=== PATIENT | female | born 1990 | race Caucasian/White ===

== ENCOUNTER 2017-04-12 14:01 | Inpatient (IN) | payer MEDICAID, OTHER ==
[~2017-04-12] VITALS: Ht 162.6 cm; Wt 87.9 kg
[2017-04-12 14:03] VITALS: BP 164/88; PULSE 74; RESP 16; TEMP 97.9; O2SAT 98
[2017-04-12 15:26] LABS: AUTOMATED NEUTROPHIL # 6.8 TH/MM3 (1.8-7.7); BASOPHIL # 0.1 TH/MM3 (0-0.2); BASOPHIL % 0.5 % (0.0-2.0); EOSINOPHIL # 0.5 TH/MM3 (0-0.4); EOSINOPHIL % 4.6 % (0.0-4.0); HEMATOCRIT 36.7 % (35.0-46.0); HEMO FLAGS DIFF FINAL; LYMPH % 21.1 % (9.0-44.0); LYMPHOCYTE # 2.1 TH/MM3 (1.0-4.8); MEAN CELL VOLUME 78.7 FL (80.0-100.0); MEAN CORPUSCULAR HEMOGLOBIN 25.8 PG (27.0-34.0); MEAN CORPUSCULAR HGB CONC 32.8 % (32.0-36.0); MONO % 5.5 % (0.0-8.0); NEUT % 68.3 % (16.0-70.0); PLATELET COUNT 265 TH/MM3 (150-450); RED BLOOD COUNT 4.67 MIL/MM3 (4.00-5.30); RED CELL DISTRIBUTION WIDTH 15.4 % (11.6-17.2)
[2017-04-12 15:44] LABS: ALT (GPT) 20 U/L (10-53); ANION GAP 7 MEQ/L (5-15); AST (GOT) 12 U/L (15-37); BLOOD UREA NITROGEN 11 MG/DL (7-18); CHLORIDE 106 MEQ/L (98-107); GLOMERULAR FILTRATION RATE 106 ML/MIN (>89); POTASSIUM 3.9 MEQ/L (3.5-5.1); SODIUM (NA) 139 MEQ/L (136-145)
[2017-04-12 15:46] LABS: ALKALINE PHOSPHATASE 116 U/L (45-117); TOTAL BILIRUBIN ADULT 0.3 MG/DL (0.2-1.0)
[2017-04-12 16:26] LABS: BLOOD, URINE NEG (NEG); CALCIUM OXALATE CRYSTALS,URINE FEW /hpf; GLUCOSE,URINE NEG (NEG); KETONE, URINE NEG (NEG); NITRITE,URINE NEG (NEG); PH, URINE 6.5 (5.0-8.5); SQUAMOUS EPITHELIAL CELL URINE 5 /hpf (0-5); URINE COLOR YELLOW (YELLW/STRAW)
[2017-04-12 16:28] LABS: COMMENT (UR) CULTURE INDICATED; CULTURE IF INDICATED CULTURE INDICATED
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
[2017-04-12 17:07] VITALS: BP 135/88; PULSE 56; RESP 17; O2SAT 99
[2017-04-12] MEDS ORDERED: MACR100C2 PO (18:52)
[2017-04-12] MEDS ORDERED: NITROFURANTOIN MONOHYD MACROCR 100 MG CAP PO ONE (19:00)
[2017-04-12 19:09] VITALS: BP 137/72; PULSE 80; RESP 18; O2SAT 99
[2017-04-12 22:15] VITALS: BP 138/97; PULSE 71; RESP 18; TEMP 98.7; O2SAT 97
[2017-04-12] MEDS ORDERED: diphenhydrAMINE HCL 50 MG/ML VIAL - HS PRN IM (23:00)
[2017-04-12] MEDS ORDERED: diphenhydrAMINE HCL 50 MG CAP - HS PRN PO (23:00)
[2017-04-12] MEDS ORDERED: ACETAMINOPHEN 325 MG TAB PO PRN (23:00)
[2017-04-12] MEDS ORDERED: ALUMINUM/MAGNESIUM/SIMETH 30 ML CUP PO PRN (23:00)
[2017-04-12] MEDS ORDERED: MAGNESIUM HYDROXIDE SUSP 30 ML CUP PO PRN (23:00)
[2017-04-13 06:07] VITALS: BP 105/64; PULSE 56; RESP 18; TEMP 97.7; O2SAT 96
[2017-04-13] MEDS: NICOTINE 21 MG/24 HR PATCH T-DERMAL SCH (09:00)
[2017-04-13] MEDS: REMOVE OLD NICOTINE PATCH T-DERMAL SCH (09:21)
[2017-04-13 09:41] LABS: ANION GAP 7 MEQ/L (5-15); BICARBONATE 25.7 MEQ/L (21.0-32.0); BLOOD UREA NITROGEN 10 MG/DL (7-18); CHLORIDE 106 MEQ/L (98-107); GLOMERULAR FILTRATION RATE 112 ML/MIN (>89); SODIUM (NA) 139 MEQ/L (136-145)
[2017-04-13 09:45] LABS: HDL CHOLESTEROL 81.8 MG/DL (40.0-60.0); LDL CHOLESTEROL 61 MG/DL (0-99)
[2017-04-13] MEDS ORDERED: PILL SPLITTER OTHER PRN (09:45)
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
[2017-04-13] MEDS: SERTRALINE HCL 50 MG TAB PO SCH (10:37)
[2017-04-13 11:01] LABS: HEMOGLOBIN A1a 1.5 %; HEMOGLOBIN Ao 85.2 %; HEMOGLOBIN F 1.2 %; HEMOGLOBIN LA1C 1.9 %; HEMOGLOBIN P3 3.4 %
--- NOTE | 2017-04-13 16:10 | PD.CONS ---
HPI Service [facility] Consult Requested By Dr. Hamilton Reason for Consult Medical management Primary Care Physician Unknown Diagnoses: History of Present Illness The patient is a 26-year-old female with past medical history of anxiety and SVT who is presenting to the hospital with anxiety. She says that over the past 2 months she has been experiencing panic attacks, up to 2 per day. She says her symptoms include shortness of breath, palpitations, dizziness and sweating. She says she moved 2 months ago but does not believe that is the stressor that caused her panic attacks to start. 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 She has been having thoughts about dying so she came to the hospital to seek voluntary help. She denies any out right suicidal plan. She says she has been on antidepressants once when she was 15. She said that she experiences palpitations with her panic attacks and gets very nervous that it might turn into another episode of SVT. Review of Systems Except as stated in HPI: all other systems reviewed are Neg Past Family Social History Allergies: Coded Allergies: No Known Allergies (Verified , 04/12/15) Past Medical History 2 episodes of SVT, one while Anxiety Past Surgical History 1 Active Ordered Medications Current Medications Medications (Trade) Dose Ordered Sig/Christine Route Start Time Stop Time Status Last Admin (Atarax) 50 mg Q6H PRN PO 04/12/17 23:00 (Benadryl) 50 mg HS PRN PO 04/12/17 23:00 (Benadryl Inj) 50 mg HS PRN IM 04/12/17 23:00 (Tylenol) 650 mg Q4H PRN PO 04/12/17 23:00 (Milk Of Magnesia Liq) 30 ml DAILY PRN PO 04/12/17 23:00 (Mag-Al Plus Susp Liq) 30 ml Q6H PRN PO 04/12/17 23:00 (Habitrol 21 Mg Patch.24 Hr) 1 patch DAILY T-DERMAL 04/13/17 09:00 Miscellaneous Information 1 HS T-DERMAL 04/13/17 21:00 (Zoloft) 25 mg DAILY PO 04/13/17 10:00 04/13/17 10:37 (Desyrel) 25 mg HS PRN PO 04/13/17 09:30 (Macrobid) 100 mg BID PO 04/13/17 21:00 (Pill Splitter) 1 ea UNSCH PRN OTHER 04/13/17 09:45 Family History Schizophrenia Social History The patient smokes when she drinks. She drinks heavily one to 2 days a week. She smokes marijuana daily. Physical Exam Vital Signs Vital Signs Date Time Temp Pulse Resp B/P (MAP) Pulse Ox O2 Delivery O2 Flow Rate FiO2 04/13/17 06:07 97.7 56 18 105/64 (78) 96 04/12/17 22:15 98.7 71 18 138/97 (111) 97 04/12/17 22:08 04/12/17 19:09 80 18 137/72 (93) 99 Room Air 04/12/17 17:07 56 17 135/88 (104) 99 Room Air Physical Exam GENERAL: This is a well-nourished, well-developed patient, in no apparent distress. SKIN: No rashes, ecchymoses or lesions. Cool and dry. HEAD: Atraumatic. Normocephalic. No temporal or scalp tenderness. EYES: Pupils equal round and reactive. Extraocular motions intact. No scleral icterus. No injection or drainage. ENT: Nose without bleeding, purulent drainage or septal hematoma. Throat without erythema, tonsillar hypertrophy or exudate. Uvula midline. Airway patent. NECK: Trachea midline. No JVD or lymphadenopathy. Supple, nontender, no meningeal signs. CARDIOVASCULAR: Regular rate and rhythm without murmurs, gallops, or rubs. RESPIRATORY: Clear to auscultation. Breath sounds equal bilaterally. No wheezes , rales, or rhonchi. GASTROINTESTINAL: Abdomen soft, non-tender, nondistended. No hepato-splenomegaly , or palpable masses. No guarding. MUSCULOSKELETAL: Extremities without clubbing, cyanosis, or edema. No joint tenderness, effusion, or edema noted. NEUROLOGICAL: Awake and alert. Cranial nerves II through XII intact. Motor and sensory grossly within normal limits. Five out of 5 muscle strength in all muscle groups. Normal speech. PSYCH: Mood and affect appropriate. Laboratory Laboratory Tests Test 04/13/17 08:07 Blood Urea Nitrogen 10 Creatinine 0.64 Random Glucose 80 Calcium Level 8.8 Sodium Level 139 Potassium Level 4.0 Chloride Level 106 Carbon Dioxide Level 25.7 Anion Gap 7 Estimat Glomerular Filtration Rate 112 Hemoglobin A1c 5.4 Triglycerides Level 98 Cholesterol Level 162 LDL Cholesterol 61 HDL Cholesterol 81.8 Cholesterol/HDL Ratio 1.98 Date/Time Source Procedure Growth Status 04/12/17 16:00 Urine Clean Catch Urine Culture - Preliminary NO GROWTH IN 24 HOURS. Resulted Result Diagram: 04/12/17 1442 04/13/17 0807 Assessment and Plan Assessment and Plan Anxiety/ Panic attacks Debilitating. Ongoing for the past 2 months. - Management per psychiatry. SVT The patient has had 2 episodes in her life, one while . Heart rate currently well controlled. - Outpatient follow-up as needed. UTI Possible UTI noted on urinalysis. Pulmonary culture is negative. - Continue to follow urine culture. PPx: [facility] will sign off on this stable patient Isael Madrid DO Apr 13, 2017 16:10
[2017-04-13 18:11] VITALS: BP 138/76; PULSE 70; RESP 16; TEMP 97.7; O2SAT 97
[2017-04-13] MEDS: NITROFURANTOIN MONOHYD MACROCR 100 MG CAP PO SCH (21:52)
[2017-04-13] MEDS: traZODone HCL 50 MG TAB PO PRN (21:58)
[2017-04-14 05:30] VITALS: BP 135/71; PULSE 80; RESP 17; TEMP 98.4; O2SAT 97
[2017-04-14] MEDS: hydrOXYzine HCL 50 MG TAB PO PRN (08:41)
[2017-04-14] MEDS: NITROFURANTOIN MONOHYD MACROCR 100 MG CAP PO SCH ×2 (08:41→20:54)
[2017-04-14] MEDS: NICOTINE 21 MG/24 HR PATCH T-DERMAL SCH (08:43)
[2017-04-14] MEDS: SERTRALINE HCL 50 MG TAB PO SCH (08:43)
--- NOTE | 2017-04-14 14:01 | HHI.PYPN ---
Subjective Remarks Pt seen and discussed with staff. She remains depressed and anxious. She is compliant with medications and denies side effects.She has been withdrawn and isolative to her room. Pt states that she is tolerating medication without side effects. No SI/HI Chief Complaint: increased depression anxiety unable to hold job Mental Status Examination Appearance: Appropriate Consciousness: Alert Orientation: x4 Motor Activity: Normal gait Speech: Unremarkable Language: Adequate Fund of Knowledge: Adequate Attention and Concentration: Other (fair) Memory: Unremarkable Mood: Other (depressed) Affect: Sad Thought Process & Associations: Intact Thought Content: Appropriate Hallucination Type: None Delusion Type: None Suicidal Ideation: No Suicidal Plan: No Suicidal Intention: No Homicidal Ideation: No Homicidal Plan: No Homicidal Intention: No Insight: Fair Judgment: Adequate Results Labs Date/Time Source Procedure Growth Status 04/12/17 16:00 Urine Clean Catch Urine Culture - Final 50-100,000 CFU/ML MIXED GRAM POSITIVE... Complete Vitals/IOs Vital Signs Date Time Temp Pulse Resp B/P (MAP) Pulse Ox O2 Delivery O2 Flow Rate FiO2 04/14/17 05:30 98.4 80 17 135/71 (92) 97 04/12/17 19:09 Room Air Assessment & Plan Problem List: (1) Depression, major, single episode, moderate ICD Codes: F32.1 - Major depressive disorder, single episode, moderate (2) Marijuana abuse ICD Codes: F12.10 - Cannabis abuse, uncomplicated Assessment & Plan Continue current tx plan. Estimated LOS: days Justification for Cont. Inpt. monitoring for safety Request HC Surrog/Guard Advoc?: Domenica Beebe MD Apr 14, 2017 14:01
[2017-04-14 16:46] VITALS: BP 134/87; PULSE 78; RESP 18; TEMP 98.4; O2SAT 98
[2017-04-14] MEDS: traZODone HCL 50 MG TAB PO PRN (20:54)
[2017-04-14] MEDS: REMOVE OLD NICOTINE PATCH T-DERMAL SCH (20:55)
[2017-04-15 06:30] VITALS: BP 107/60; PULSE 62; RESP 18; TEMP 97.5; O2SAT 98
[2017-04-15] MEDS: NITROFURANTOIN MONOHYD MACROCR 100 MG CAP PO SCH ×2 (08:38→21:04)
[2017-04-15] MEDS: SERTRALINE HCL 50 MG TAB PO SCH (08:38)
[2017-04-15] MEDS: hydrOXYzine HCL 50 MG TAB PO PRN (08:39)
[2017-04-15] MEDS: NICOTINE 21 MG/24 HR PATCH T-DERMAL SCH (08:52)
[2017-04-15] MEDS ORDERED: busPIRone HCL 5 MG TAB PO SCH (14:00)
--- NOTE | 2017-04-15 16:54 | HHI.PYPN ---
Subjective Remarks Patient's for follow-up, chart review. Patient is a 26-year-old woman , domiciled with boyfriend and 19 -month-old child, unemployed, with past psychiatric history of bipolar disorder, marijuana use disorder with no previous psychiatric hospitalizations no previous suicide attempt history of self-interest behavior via cutting (last being at 19 years old), who was admitted to the inpatient psychiatry unit on a voluntary basis for depression and anxiety. Patient states that she was having "panic attack feelings" and feeling overwhelmed with losing her job, reporting having some social anxiety and being scared while driving feeling very anxious. Patient reports that recently her sleep has been okay, no problems with appetite but didn't notice having decreased energy and concentrations along with feelings of guilt of being "a bad mom" referring to trying to maintain a job. Patient states her mood has been "anxiety", but feeling sad and depressed for the past couple of months along with feeling helpless and hopeless. Patient reports she's been having suicidal ideations last time being upon admission (3 days ago) and reports having had suicidal ideation for the past 2-3 weeks a daily basis. Patient states that she has not had any medical planning states that her reasons to live or for her daughter, family, and her own life. Patient denies any perceptual disturbances denies SI or HI or any delusions. Patient states that today she is feeling "better" and that her anxiety has been better. Collateral contacts: Ember Rivers (mother)[phone] Owen Jesus (boyfriend) Chief Complaint: increased depression anxiety unable to hold job Review of Systems Except as stated in HPI: all other systems reviewed are Neg Mental Status Examination Appearance: Appropriate Consciousness: Alert Orientation: x4 Motor Activity: Normal gait Speech: Unremarkable Language: Adequate Fund of Knowledge: Adequate Attention and Concentration: Other (fair) Memory: Unremarkable Mood: Other ("better") Affect: Sad Thought Process & Associations: Intact, Goal directed Thought Content: Appropriate Hallucination Type: None Delusion Type: None Suicidal Ideation: No Suicidal Plan: No Suicidal Intention: No Homicidal Ideation: No Homicidal Plan: No Homicidal Intention: No Insight: Fair Judgment: Adequate Results Labs Date/Time Source Procedure Growth Status 04/12/17 16:00 Urine Clean Catch Urine Culture - Final 50-100,000 CFU/ML MIXED GRAM POSITIVE... Complete Vitals/IOs Vital Signs Date Time Temp Pulse Resp B/P (MAP) Pulse Ox O2 Delivery O2 Flow Rate FiO2 04/15/17 06:30 97.5 62 18 107/60 (76) 98 04/12/17 19:09 Room Air Assessment & Plan Problem List: (1) Depression, major, single episode, moderate ICD Codes: F32.1 - Major depressive disorder, single episode, moderate (2) Marijuana abuse ICD Codes: F12.10 - Cannabis abuse, uncomplicated Assessment & Plan Patient continues to report having depressed mood and anxiety but no longer having suicidal ideations. Increase sertraline to 50 mg by mouth daily for depression, start buspirone 5 mg by mouth 3 times a day for anxiety. Encourage patient to put his spitting groups and activities and to be less isolative. Monitor for medication response and adverse drug reactions. Discharge planning in progress Justification for Cont. Inpt. At risk for further decompensation if at lower level of care Discharge Planning Was psychiatrically stable patient may return home with boyfriend. Request HC Surrog/Guard Advoc?: No Wade Vu MD Apr 15, 2017 16:53
[2017-04-15] MEDS: busPIRone HCL 5 MG TAB PO SCH (17:35)
[2017-04-15 18:00] VITALS: BP 141/91; PULSE 77; RESP 16; TEMP 98
[2017-04-15] MEDS: REMOVE OLD NICOTINE PATCH T-DERMAL SCH (21:00)
[2017-04-15] MEDS: traZODone HCL 50 MG TAB PO PRN (21:05)
[2017-04-16 05:52] VITALS: BP 129/65; PULSE 74; RESP 18; TEMP 97.7; O2SAT 96
[2017-04-16] MEDS: NICOTINE 21 MG/24 HR PATCH T-DERMAL SCH (09:00)
[2017-04-16] MEDS: busPIRone HCL 5 MG TAB PO SCH ×3 (10:00→18:15)
[2017-04-16] MEDS: SERTRALINE HCL 50 MG TAB PO SCH (10:00)
[2017-04-16] MEDS: NITROFURANTOIN MONOHYD MACROCR 100 MG CAP PO SCH ×2 (10:00→21:34)
--- NOTE | 2017-04-16 12:20 | HHI.PYPN ---
Subjective Remarks Patient seen for follow-up, chart reviewed. Patient found walking around units , cooperative interview. Patient states that she had gone to psychotherapy group which she enjoyed including our group. Patient states that her mood is "pretty good" denies any suicidal ideations last time being last Saturday and states that her anxiety has gotten better. Patient reports tolerating medications well no adverse drug reactions. Patient additionally visited by her boyfriend which she was happy to see. Chief Complaint: increased depression anxiety unable to hold job Review of Systems Except as stated in HPI: all other systems reviewed are Neg Mental Status Examination Appearance: Appropriate Consciousness: Alert Orientation: x4 Motor Activity: Normal gait Speech: Unremarkable Language: Adequate Fund of Knowledge: Adequate Attention and Concentration: Other (fair) Memory: Unremarkable Mood: Appropriate, Other ("pretty good") Affect: Appropriate Thought Process & Associations: Intact, Goal directed Thought Content: Appropriate Hallucination Type: None Delusion Type: None Suicidal Ideation: No Suicidal Plan: No Suicidal Intention: No Homicidal Ideation: No Homicidal Plan: No Homicidal Intention: No Insight: Fair Judgment: Adequate Results Labs Date/Time Source Procedure Growth Status 04/12/17 16:00 Urine Clean Catch Urine Culture - Final 50-100,000 CFU/ML MIXED GRAM POSITIVE... Complete Vitals/IOs Vital Signs Date Time Temp Pulse Resp B/P (MAP) Pulse Ox O2 Delivery O2 Flow Rate FiO2 04/16/17 05:52 97.7 74 18 129/65 (86) 96 04/12/17 19:09 Room Air Assessment & Plan Problem List: (1) Depression, major, single episode, moderate ICD Codes: F32.1 - Major depressive disorder, single episode, moderate (2) Marijuana abuse ICD Codes: F12.10 - Cannabis abuse, uncomplicated Assessment & Plan Patient at this time noted to have improved mood no longer endorsing suicidal ideations. Patient also has decrease in anxiety symptoms. Continue current treatment, discharge planning in progress Justification for Cont. Inpt. At risk for further decompensation if at lower level of care Discharge Planning Patient likely for discharge in 1-2 days as patient improving. Request HC Surrog/Guard Advoc?: Wade Penn MD Apr 16, 2017 12:20
[2017-04-16 18:40] VITALS: BP 144/89; PULSE 84; RESP 17; TEMP 98.1; O2SAT 98
[2017-04-16] MEDS: REMOVE OLD NICOTINE PATCH T-DERMAL SCH (21:00)
[2017-04-17 06:06] VITALS: BP 111/57; PULSE 75; RESP 18; TEMP 98.3
[2017-04-17] MEDS: NITROFURANTOIN MONOHYD MACROCR 100 MG CAP PO SCH (08:47)
[2017-04-17] MEDS: busPIRone HCL 5 MG TAB PO SCH (08:48)
[2017-04-17] MEDS: SERTRALINE HCL 50 MG TAB PO SCH (08:48)
[2017-04-17] MEDS: NICOTINE 21 MG/24 HR PATCH T-DERMAL SCH (08:48)
[2017-04-17] MEDS ORDERED: BUSP5TAB PO (09:41)
[2017-04-17] MEDS ORDERED: NITR100C4 PO (09:41)
[2017-04-17] MEDS ORDERED: ZOLO50TA PO (09:41)
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
== END 2017-04-17 10:50 | disposition home or self-care (01) | DRG 885 ==
LOC: NEPC 14:01 → NEDA 19:33 → H260 22:11
PROVIDERS: ADMIT Student in an Organized Health Care Education/Training Program; ATTEND Student in an Organized Health Care Education/Training Program
DX: F32.2 Major depressive disorder, single episode, severe without psychotic features (principal); I47.1 Supraventricular tachycardia; R45.851 Suicidal ideations; N39.0 Urinary tract infection, site not specified; F41.0 Panic disorder [episodic paroxysmal anxiety]; F40.10 Social phobia, unspecified; F17.200 Nicotine dependence, unspecified, uncomplicated; F12.10 Cannabis abuse, uncomplicated; G47.00 Insomnia, unspecified; Z62.810 Personal history of physical and sexual abuse in childhood; Z79.899 Other long term (current) drug therapy
CPT/HCPCS: 80048; 80053; 80061; 80307; 81001; 83036; 85025; 87086